=== PATIENT | female | born 1980 | race American Indian/Alaskan Native ===

== ENCOUNTER 2016-09-12 15:05 | Emergency (ER) | payer OTHER ==
--- NOTE | 2016-09-12 15:39 | Emergency Department Report ---
Chief Complaint: Chest Pain Stated Complaint: CHEST/BREAST PAIN/PALPATATIONS Time Seen by Provider: 09/12/16 15:31 - HPI History of Present Illness: 36 complain of extreme fatigue with chest pain and breast pain with discharge x 7 months .pt voice tingling in the right arm x 2 months.pt state taking motrin and tylenol for pain without any relief.pt denies any injury. - ROS Review of Systems: per HPI - Exam Vital Signs: Vital Signs 09/12/16 15:20 Temperature 97 F L Pulse Rate 100 H Blood Pressure 137/96 O2 Sat by Pulse 100 Oximetry Physical Exam: GENERAL: The patient is well-developed and well-nourished. Patient is in NAD. HENT: Normocephalic. Atraumatic. Patient has moist mucous membranes. Throat: No erythema, swelling or exudates. EYES: Extraocular motions are intact, PERRL NECK: Supple. No meningitic signs are noted. There is no adenopathy noted. CHEST/LUNGS: Clear to auscultation bilaterally. No wheezing, rales or rhonchi noted. There is no respiratory distress noted. HEART/CARDIOVASCULAR: Regular rate and rhythm. Normal S1 S2. No murmurs, rubs , clicks, or gallops. ABDOMEN: Abdomen is soft, nontender.. Bowel sounds normoactive. There is no abdominal distention. Negative rebound tenderness. : Deferred. SKIN: There is no rash. There is no edema. There is no diaphoresis. NEURO: The patient is A&Ox3. The patient has no focal neurologic deficits. MUSCULOSKELETAL: There is no tenderness or deformity. There is no limitation range of motion. PSYCH: Pt has appropriate mood and affect. MSE screening note: Focused history and physical exam performed. Due to findings the following was ordered: ED Disposition for MSE Condition: Stable
[2016-09-12 16:28] LABS: Basophils % (Auto) 0.6 % (0.0-1.8); Eosinophils % (Auto) 1.7 % (0.0-4.3); Hematocrit 41.1 % (30.3-42.9); Mean Corpuscular HGB Conc 32 % (30-34); Mean Corpuscular Hemoglobin 27 pg (28-32); Mean Corpuscular Volume 86 fl (79-97); Platelet Count 222 K/mm3 (140-440); Red Blood Count 4.78 M/mm3 (3.65-5.03); Red Cell Distribution Width 15.1 % (13.2-15.2); White Blood Count 6.5 K/mm3 (4.5-11.0)
[2016-09-12 16:40] LABS: INR 0.98 (0.87-1.13); Partial Thromboplastin Time 27.6 Sec. (24.2-36.6)
[2016-09-12 16:55] LABS: Alanine Aminotransferase 16 units/L (7-56); Albumin 4.5 g/dL (3.9-5); Albumin/Globulin Ratio 1.6 %; Alkaline Phosphatase 56 units/L (35-129); Anion Gap 18 mmol/L; BUN/Creatinine Ratio 23.33; Bilirubin,Total 0.3 mg/dL (0.1-1.2); Blood Urea Nitrogen 21 mg/dL (7-17); Calcium 9.4 mg/dL (8.4-10.2); Carbon Dioxide 24 mmol/L (22-30); Chloride 105.1 mmol/L (98-107); Creatine Kinase 44 units/L (30-135); Creatine Kinase MB < 1.0 ng/mL (0.0-4.0); Glucose 89 mg/dL (65-100); Potassium 4.5 mmol/L (3.6-5.0); Sodium 143 mmol/L (137-145); Total Protein 7.3 g/dL (6.3-8.2)
[2016-09-12 17:35] LABS: Bacteria,Urine 2+ /HPF (Negative); Bilirubin,Urine NEG (Negative); Blood,Urine LG (Negative); Ketones,Urine NEG (Negative); Leukocyte Esterase,Urine MOD (Negative); Mucus,Urine 3+ /HPF; Nitrite,Urine NEG (Negative); Urobilinogen,Urine < 2.0 mg/dL (<2.0)
[2016-09-12 17:36] LABS: RBC,Urine > 182.0 /HPF (0.0-6.0)
--- NOTE | 2016-09-12 17:43 | Emergency Department Report ---
ED General Adult HPI - General Chief complaint: Chest Pain Stated complaint: CHEST/BREAST PAIN/PALPATATIONS Time Seen by Provider: 09/12/16 17:24 Source: patient Mode of arrival: Ambulatory Limitations: No Limitations - History of Present Illness Initial comments: 36-year-old female presents to the emergency department with multiple complaints. Patient reports bilateral heaviness in her breasts and drainage. She reports pain in her right breast into her shoulder. Movement of the arm is painful as well. She reports generalized weakness and fatigue. The symptoms have been progressively getting worse for the past 7 months. Patient states that she has lost a lot of weight unintentionally. There are no other complaints. -: Gradual, month(s) (7) Location: chest Radiation: non-radiation Quality: aching Consistency: constant Improves with: none Worsens with: none Treatments Prior to Arrival: none - Related Data Previous Rx's Medication Instructions Recorded Last Taken Type traMADol [Ultram] 50 mg PO Q6HR PRN #30 tablet 09/12/16 Unknown Rx Allergies Allergy/AdvReac Type Severity Reaction Status Date / Time Sulfa (Sulfonamide Allergy Unknown Verified 09/12/16 15:23 Antibiotics) ED Review of Systems ROS: Stated complaint: CHEST/BREAST PAIN/PALPATATIONS Other details as noted in HPI Comment: All other systems reviewed and negative Constitutional: malaise, weakness Musculoskeletal: as per HPI ED Past Medical Hx - Past Medical History Previous Medical History?: Yes - Surgical History Past Surgical History?: Yes Additional Surgical History: Toe surgery, sebaceous cyst removal, - Family History Family history: cancer - Social History Smoking Status: Never Smoker Substance Use Type: None - Medications Home Medications: Home Medications Medication Instructions Recorded Confirmed Last Taken Type traMADol [Ultram] 50 mg PO Q6HR PRN #30 tablet 09/12/16 Unknown Rx ED Physical Exam - General Limitations: No Limitations General appearance: alert, in no apparent distress - Head Head exam: Present: atraumatic, normocephalic - Eye Eye exam: Present: normal appearance, PERRL, EOMI - ENT ENT exam: Present: normal exam, normal orophraynx, mucous membranes moist - Neck Neck exam: Present: normal inspection, full ROM. Absent: tenderness - Respiratory Respiratory exam: Present: normal lung sounds bilaterally. Absent: respiratory distress - Cardiovascular Cardiovascular Exam: Present: regular rate, normal rhythm, normal heart sounds - GI/Abdominal GI/Abdominal exam: Present: soft, normal bowel sounds. Absent: distended, tenderness - Extremities Exam Extremities exam: Present: normal inspection, full ROM. Absent: tenderness - Back Exam Back exam: Present: normal inspection, full ROM. Absent: tenderness - Neurological Exam Neurological exam: Present: alert, oriented X3. 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 Approximately 1 cm palpable mass in the right breast in the superior medial quadrant. No nipple discharge noted. ED Course Vital Signs 09/12/16 09/12/16 15:20 17:34 Temperature 97 F L Pulse Rate 100 H Respiratory 18 Rate Blood Pressure 137/96 O2 Sat by Pulse 100 99 Oximetry ED Medical Decision Making - Lab Data Result diagrams: 09/12/16 16:12 09/12/16 16:18 - EKG Data -: EKG Interpreted by Me EKG shows normal: sinus rhythm, intervals, QRS complexes Rate: normal - EKG Data When compared to previous EKG there are: previous EKG unavailable Interpretation: nonspecific ST-T wave kamil[place], other (sinus rhythm with extreme rightward axis) - Radiology Data Radiology results: image reviewed interpreted by me: Chest x-ray shows no acute cardiopulmonary abnormality. - Medical Decision Making Lab and imaging results reviewed and discussed with the patient. Patient will be discharged home at this time to follow up with a primary care physician for mammogram referral. - Differential Diagnosis anemia, cancer, chronic fatigue syndrome Critical care attestation.: If time is entered above; I have spent that time in minutes in the direct care of this critically ill patient, excluding procedure time. ED Disposition Clinical Impression: Pain of both breasts Fatigue Qualifiers: Fatigue type: unspecified Qualified Code(s): R53.83 - Other fatigue Disposition: DISCHARGED TO HOME OR SELFCARE Is pt being admited?: No Condition: Stable Instructions: Breast Care for the Non-breast Feeding Woman (ED), Fatigue (ED) Prescriptions: traMADol [Ultram] 50 mg PO Q6HR PRN #30 tablet PRN Reason: Pain Referrals: URI BETTENCOURT JR, MD [Staff Physician] - 3-5 Days Time of Disposition: 18:07
[2016-09-12 18:13] VITALS: BP 130/85
--- NOTE | 2016-09-13 08:42 | XRay Report ---
ROUTINE CHEST, TWO VIEWS: PA and lateral views demonstrate the heart and mediastinal contour to be of normal size and shape. The lungs are clear and fully expanded and the soft tissues and bony structures are normal. IMPRESSION: Normal study.
== END 2016-09-12 18:14 | disposition home or self-care (01) ==
LOC: ED 15:05
DX: N64.4 Mastodynia (principal); R53.83 Other fatigue; Z88.2 Allergy status to sulfonamides
CPT/HCPCS: 36415; 71020; 80053; 81001; 81025; 82550; 82553; 85025; 85610; 85730; 93005; 93010

== ENCOUNTER 2016-09-24 12:49 | Outpatient (CLI) | payer OTHER ==
--- NOTE | 2016-09-24 14:54 | Ultrasound Report ---
Right breast ultrasound with aspiration: The patient presents with a strong family history of cancer and positive BRACA gene. She is piercing pain in her upper breast and outside negative mammogram and recent ultrasound demonstrating multiple small right breast cysts. She presents for aspiration of the palpable, painful cyst. Imaging of the breast demonstrates 2 cysts in the 12:00 location which is the area of her discomfort. Several other smaller cysts and no solid masses identified. The larger of the 2 measures 7 mm. Under ultrasound guidance and following cleansing of the skin with Betadine a 21-gauge needle was used to percutaneously aspirate the cyst which immediately refilled with echogenic fluid. The initial fluid which is small in volume was blood-tinged. A repeat aspiration collapsed lesion which did not refill. There is some vascularity around the area with color imaging. It is of note the patient demonstrated a fair bit of bleeding from the puncture site which was easily controlled with compression. The patient was discharged without further complication. At the patient's insistence the fluid was sent for cytology.
--- NOTE | 2016-09-24 14:57 | History and Physical Report ---
History of Present Illness Date of examination: 09/24/16 Chief complaint: rt. breast pain/cysts Medications and Allergies Allergies Allergy/AdvReac Type Severity Reaction Status Date / Time Sulfa (Sulfonamide Allergy Unknown Verified 09/12/16 15:23 Antibiotics) Home Medications Medication Instructions Recorded Confirmed Last Taken Type traMADol [Ultram] 50 mg PO Q6HR PRN #30 tablet 09/12/16 Unknown Rx
--- NOTE | 2016-09-24 14:58 | Procedure Note ---
Date of procedure: 09/24/16 Pre-op diagnosis: rt. breast cysts Post-op diagnosis: same Procedure: cyst asp. Findings: bloody fluid Surgeon: JANI MCNAIR Estimated blood loss: minimal Pathology: list (cyst fluid) Specimen disposition: to lab Condition: stable Disposition: same day
== END 2016-09-24 12:50 | disposition home or self-care (01) ==
LOC: US 12:49
PROVIDERS: ATTEND Surgery
DX: N60.01 Solitary cyst of right breast (principal); N63 Unspecified lump in breast; N64.4 Mastodynia; Z80.3 Family history of malignant neoplasm of breast
CPT/HCPCS: 88112

== ENCOUNTER 2017-01-08 11:08 | Emergency (ER) | payer OTHER ==
[2017-01-08 12:15] LABS: Basophils % (Auto) 0.6 % (0.0-1.8); Eosinophils % (Auto) 1.1 % (0.0-4.3); Hematocrit 36.6 % (30.3-42.9); Hemoglobin 11.6 gm/dl (10.1-14.3); Mean Corpuscular HGB Conc 32 % (30-34); Mean Corpuscular Hemoglobin 27 pg (28-32); Mean Corpuscular Volume 86 fl (79-97); Platelet Count 178 K/mm3 (140-440); Red Blood Count 4.27 M/mm3 (3.65-5.03); Red Cell Distribution Width 14.3 % (13.2-15.2); White Blood Count 4.6 K/mm3 (4.5-11.0)
[2017-01-08 12:23] LABS: Anion Gap 16 mmol/L; BUN/Creatinine Ratio 28.57; Blood Urea Nitrogen 20 mg/dL (7-17); Calcium 8.8 mg/dL (8.4-10.2); Carbon Dioxide 24 mmol/L (22-30); Chloride 105.3 mmol/L (98-107); Glucose 82 mg/dL (65-100); Potassium 4.4 mmol/L (3.6-5.0); Sodium 141 mmol/L (137-145)
[2017-01-08 13:07] LABS: Bacteria,Urine 2+ /HPF (Negative); Bilirubin,Urine NEG (Negative); Blood,Urine NEG (Negative); Ketones,Urine NEG (Negative); Leukocyte Esterase,Urine LG (Negative); Mucus,Urine 1+ /HPF; Nitrite,Urine NEG (Negative); Protein,Urine <15 mg/dL mg/dL (Negative); Urobilinogen,Urine < 2.0 mg/dL (<2.0)
--- NOTE | 2017-01-08 17:41 | Emergency Department Report ---
ED Palpitations HPI - General Chief Complaint: Arrhythmia/Palpitations Stated Complaint: PALPITATIONS Time Seen by Provider: 01/08/17 17:19 Source: patient Mode of arrival: Ambulatory Limitations: No Limitations - History of Present Illness Initial Comments: 36-year-old female presents to the emergency department complaining of heart palpitations. Patient states she has been having intermittent palpitations since September of this year. She has been seen by [facility] and is currently wearing a Holter monitor. Today, she reports the palpitations became so severe that she began having pressure in her chest and difficulty breathing. These palpitations began while she was sitting at home watching television. At this time, the patient reports her palpitations have resolved. She has no other complaints. MD Complaint: palpitations -: Gradual, month(s) (4) Context: occured during rest Associated Symptoms: chest pain, shortness of breath - Related Data Previous Rx's Medication Instructions Recorded Last Taken Type traMADol [Ultram] 50 mg PO Q6HR PRN #30 tablet 09/12/16 Unknown Rx Allergies Allergy/AdvReac Type Severity Reaction Status Date / Time Sulfa (Sulfonamide Allergy Unknown Verified 09/12/16 15:23 Antibiotics) ED Review of Systems ROS: Stated complaint: PALPITATIONS Other details as noted in HPI Comment: All other systems reviewed and negative Respiratory: shortness of breath Cardiovascular: chest pain, palpitations ED Past Medical Hx - Past Medical History Previous Medical History?: Yes Additional medical history: heart palpitations - Surgical History Past Surgical History?: Yes Additional Surgical History: Toe surgery, sebaceous cyst removal, , hysterectomy - Family History Family history: no significant - Social History Smoking Status: Never Smoker Substance Use Type: None - Medications Home Medications: Home Medications Medication Instructions Recorded Confirmed Last Taken Type traMADol [Ultram] 50 mg PO Q6HR PRN #30 tablet 09/12/16 Unknown Rx ED Physical Exam - General Limitations: No Limitations General appearance: alert, in no apparent distress - Head Head exam: Present: atraumatic, normocephalic - Eye Eye exam: Present: normal appearance, PERRL, EOMI - ENT ENT exam: Present: normal exam, normal orophraynx, mucous membranes moist - Neck Neck exam: Present: normal inspection, full ROM. Absent: tenderness - Respiratory Respiratory exam: Present: normal lung sounds bilaterally. Absent: respiratory distress - Cardiovascular Cardiovascular Exam: Present: regular rate, normal rhythm, normal heart sounds - GI/Abdominal GI/Abdominal exam: Present: soft, normal bowel sounds. Absent: distended, tenderness - Extremities Exam Extremities exam: Present: normal inspection, full ROM. Absent: tenderness - Back Exam Back exam: Present: normal inspection, full ROM. Absent: tenderness - Neurological Exam Neurological exam: Present: alert, oriented X3. Absent: motor sensory deficit - Skin Skin exam: Present: warm, dry, intact ED Course Vital Signs 01/08/17 01/08/17 01/08/17 11:26 17:12 17:21 Temperature 98.6 F Pulse Rate 97 H 94 H 93 H Respiratory 20 17 20 Rate Blood Pressure 111/62 107/66 O2 Sat by Pulse 98 100 Oximetry 01/08/17 01/08/17 01/08/17 17:30 17:41 17:51 Temperature Pulse Rate 86 94 H 86 Respiratory 23 23 12 Rate Blood Pressure 110/66 110/66 110/66 O2 Sat by Pulse 100 99 Oximetry 01/08/17 01/08/17 01/08/17 18:00 18:11 18:21 Temperature Pulse Rate 85 86 100 H Respiratory 14 14 12 Rate Blood Pressure 120/78 120/78 120/78 O2 Sat by Pulse 99 100 99 Oximetry 01/08/17 01/08/17 01/08/17 18:30 18:41 18:51 Temperature Pulse Rate 85 83 90 Respiratory 17 16 16 Rate Blood Pressure 123/70 120/78 120/78 O2 Sat by Pulse 99 99 98 Oximetry - Consultations Consultation #1: 01/08/17 18:10 I have spoken with Dr. Barakat, emissions testing and repair technician technical planner with [facility]. Review of the patient's recent clinic visit note refill no suspicion for structural heart disease. Patient does not currently have a follow-up appointment scheduled. ED Medical Decision Making - Lab Data Result diagrams: 01/08/17 11:46 01/08/17 11:46 - EKG Data -: EKG Interpreted by Me EKG shows normal: sinus rhythm, axis, intervals, QRS complexes, ST-T waves Rate: normal - EKG Data When compared to previous EKG there are: no significant change Interpretation: normal EKG, unchanged when compared t (09/12/2016) - Medical Decision Making Laboratory results reviewed and discussed with the patient. Patient has remained asymptomatic in the emergency department. Patient will be discharged home at this time to follow up with her technical planner next week. - Differential Diagnosis cardiac arrhythmia, hyperthyroidism, anxiety Critical care attestation.: If time is entered above; I have spent that time in minutes in the direct care of this critically ill patient, excluding procedure time. ED Disposition Clinical Impression: Heart palpitations Disposition: DISCHARGED TO HOME OR SELFCARE Is pt being admited?: No Condition: Stable Instructions: Palpitations (ED) Additional Instructions: If symptoms worsen, or if new symptoms develop, return to the emergency department. Referrals: JOSH GREENBERG [Other] - 3-5 Days Time of Disposition: 19:20
[2017-01-08 19:45] VITALS: BP 117/63
== END 2017-01-08 19:46 | disposition home or self-care (01) ==
LOC: ED 11:08
DX: R00.2 Palpitations (principal)
CPT/HCPCS: 36415; 80048; 81001; 84439; 84443; 84484; 85025; 93005; 93010; 99284